=== PATIENT | male | born 1950 | race Caucasian/White ===

== ENCOUNTER 2022-05-28 11:00 | Outpatient (RCR) | payer MEDICARE, BC, SELFPAY ==
--- NOTE | 2022-05-02 16:23 | OT.OPOE ---
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 Pt states his index and middle fingers were completely numb and his ring finger was slightly numb. Pt believes it occurred secondary to carrying a heavy bag with his 2 fingers while his arms were also loaded up with a lot of things while they were moving things out of his 's hospital room. Pt states he has had mild CTS in the past, but never this bad. Pt state he later had a cortisone shot which has really helped, his hand is no longer swollen but his fingers are. Pt states he still can't make a fist but the pain is getting better. Fingers (2nd and 3rd digits) are not quite as numb, in fact , the ring finger numbness has completely resolved. Pt has been using a compression glove and a splint at night and occasionally during the day. Pt states he has tried ice but this made it hurt more. Pt still has occasional difficulty with sleeping, he has a hard time buttoning shirts and zipping zippers, cooking is hard, difficult to lift and carry anything heavy, unable to grasp with the LUE. Pain Assessment Pain Present Pain Present Pain Reported Location Left Hand Description Burning,Tightness,Radiating, Sharp,Stabbing,Shooting Intensity 5 Wrist Goniometric Wrist Left Active Flexion (70-90 degrees) 50 L Active Extension (60-70 degrees) 35 L Active Ulnar Deviation (20-30 degrees) 15 L Active Radial Deviation (15-20 degrees) 20 ROM Limitations Soft Tissue Tightness,Pain Hand Pinch/Technical Manager [employer] Plant Strength Hand Right Technical Manager [employer] Strength Position 1 (lbs) 56 Lateral Pinch Strength (lbs) 12 Three Point Pinch (lbs) 10 Left Technical Manager [employer] Strength Position 1 (lbs) 8 Lateral Pinch Strength (lbs) 13 Three Point Pinch (lbs) 6 OT Objective Data Hand Hand Dominance Right Additional Information Objective Additional Information 05/02/22 Pt demonstrates atrophy in the first webs pace on his RUE, seems to be related to UN? Also demonstrates a TF in the RUE 3rd digit, states it does not hurt and he has had it for a long time. Palpable cord in the LUE palm, seems to be stemming from 5th digit, Dupytren's? Upper Extremity Special Tests Wrist Durkan's Test Positive Left Median Nerve-Carpal Tunnel Wrist Phalen Test Positive Left Wrist Tinel Test left Upper Extremity Special Tests Comments Comments 05/02/22 (+) Tinnels at the median nn, (+) Durkan's in 10 seconds. OT Problems Problems Problems Decreased Strength,Decreased Range of Motion,Decreased Dexterity,Decreased Fine Motor ,Sensory Sensitivity,Lifting, Gripping,Pinching Problems Comments Difficulty with sleep Other Problems Opening Containers,Dressing, Fasteners Patient Potential Good Assessment Assessment Assessment Pt presents to OT with paresthesia, weakness, pain, and limited AROM of the LUE hand / wrist. Pt has (+) s/s of CTS in the LUE. Pt has difficulty with grasping, lifting, carrying, and any activity that requires use of his LUE. Pt also complains of sleep disturbance and holding hand on the steering wheel for longer drives. Pt will benefit from skilled OT intervention to address LUE deficits / paresthesia / pain in order to restore full, pain -free use of his LUE as well as to improve his quality of sleep. Occupational Therapy Treatment Plan - OP Potential Rehabilitation Potential Good Set Goals Goals Set with Patient Yes Goals Goals 1. Pt will be independent and compliant with HEP in order to resume full, pain-free use of the involved UE. 3 weeks 2. Pt will demonstrate full, pain-free AROM of the involved UE in order to improve ability to grasp and hold. 6 weeks 3. Pt will report the ability to sleep through the night for 5 consecutive days in order to improve sleep hygiene needed for daily life. 7 weeks . 4. Pt will demonstrate pain- free fern picker and pinch strength comparable to the uninvolved side in order to improve functional grasp, hold, reach, and lifting ability needed to complete self-care, leisure tasks, and work activities. 8 weeks. Target Date 07/02/22 Progress set Treatment Plan Treatment Plan Evaluation,Iontophoresis, Manual Therapy,Splinting, Ultrasound,Therapeutic Exercise,Therapeutic Activities,Self-Care/Home Management,Education Expected Frequency 1-2x Week Expected Duration 6-8 Weeks Certification Certification I Certify That: Therapy Services Provided, Therapy Plan Established, Therapy Plan Reviewed Recertification Information Recertification Information Initial Certification Date 05/02/22 Recertification Due Date 07/31/22 Reasons to Continue Skilled Therapy Initiating OT to address pain, weakness, limited AROM, and paresthesia in LUE secondary to CTS. Rehabilitation Potential Good Continued Plan of Care and Interventions Please see above. Provider Signature Shows Agreement With POC & Medical Necessity Physician Comment/Change Comment or Changes Physician NPI Number #
== END 2022-09-11 23:59 | disposition home or self-care (01) ==
PROVIDERS: PCP Family Medicine; Visit Provider Physician Assistant
DX: G56.02 Carpal tunnel syndrome, left upper limb (principal); Z51.89 Encounter for other specified aftercare
CPT/HCPCS: 97035; 97140; 97165

== ENCOUNTER 2022-06-26 06:41 | Day surgery (SDC) | payer MEDICARE, BC, SELFPAY ==
[2022-06-26] VITALS (8 sets, daily range): BP systolic 128–157; BP diastolic 74–95; PULSE 51–69; RESP 16; TEMP 36.4; O2SAT 94–99; BMI 39.4
[2022-06-26] MEDS: SODIUM CHLORIDE 0.9 % (FLUSH) 10 ML SYRINGE IVF (07:11)
[2022-06-26] MEDS: LACTATED RINGERS 1000 ML 1,000 ML 100 ML IV ×2 (07:11→08:30)
--- NOTE | 2022-06-26 07:27 | SUR.PREOP ---
TIME?OUT:?7:30 PT/RN/MDA?VERIFICATION?OF?SURGICAL?SITE Left Arm,?PROCEDURE Nerve Block ,?AND?CONSENT OBTAINED?PRIOR?TO?INVASIVE?PROCEDURE Y.
[2022-06-26] MEDS: fentaNYL 100 MCG/2 ML inj IVP (07:30)
[2022-06-26] MEDS: MIDAZOLAM HCL 1 MG/ML inj IVP (07:30)
--- NOTE | 2022-06-26 07:44 | SUR.PREOP ---
I have reviewed and concur with all assessments, medication administration, and documentation completed by Liza Yates, student nurse.?
[2022-06-26] MEDS: CEFAZOLIN 2 GM INJ IVP (07:50)
--- NOTE | 2022-06-26 08:18 | W.ANESCHARGE ---
Anesthesia Charges Start Date/Time Anesthesia Start Date: 06/26/22 Anesthesia Start Time: 07:42 Stop Date/Time Anesthesia Stop Date: 06/26/22 Anesthesia Stop Time: 08:59 Summary Extremes of Age - Over 70 or under 1: MDA
--- NOTE | 2022-06-26 08:19 | W.PM.NB ---
Nerve Block Nerve Block Time Seen by Provider: 07:35 Date Seen: 06/26/22 Type of block requested by surgeon for post-operative analgesia: axillary Side: left Time out performed: Yes Verification of patient name: Yes Verification of date of : Yes Site marking: site marked Name of person performing procedure: Art Continuous monitoring Was continuous monitoring of O2 sat, B/P, telemetry monitor, recorded every 15 minutes?: Yes Procedure Checklist: sterile prep, needles and gloves Ultrasound guided. Images saved: Yes Medications given in 5ml increments after negative aspiration: Ropivicaine %: 0.5 mL: 15 Needle gauge: 22 and Lidocaine %: 2 mL: 15 Needle gauge: 22 Patient tolerated procedure well: Yes Additional comments: Needle noted adjacent to nerve Block Charges Block Charge (with Pro Fee): Brachial Plexus Use of Ultrasound Machine for Block: Yes- US Guidance/pain block
--- NOTE | 2022-06-26 08:38 | PM.ORPRC ---
Procedure Note Date of procedure: 06/26/22 Procedure: Preop diagnosis: Left upper extremity cubital tunnel syndrome, carpal tunnel syndrome Postop diagnosis: Left upper extremity cubital tunnel syndrome, carpal tunnel syndrome Procedure: Left upper extremity cubital tunnel release, carpal tunnel release Anesthesia: Supraclavicular block plus monitored anesthesia care Surgeon: Anam Chaney MD malt specifications control assistant: FRED Douglas EBL: 0 mL Complications: None Specimens: None Drains: None Preoperative antibiotics: Ancef 3 g Indications: The patient has a history of left upper extremity cubital tunnel and carpal tunnel syndrome symptoms. EMG/nerve conduction study confirms the diagnosis. Despite appropriate nonoperative management they continue to have symptoms. Operative intervention was recommended. The risks, benefits alternatives and expected outcomes were discussed in detail. These included but were not limited to: Infection, bleeding, injury to blood vessel or nerve, venous thromboembolism. All questions were answered to their satisfaction. A supraclavicular block was placed. The patient was placed supine on the operating room table. IV sedation was administered. The upper extremity was prepped and draped in usual sterile fashion. The limb was exsanguinated with the Real bandage, the pneumatic tourniquet was inflated to 250 mm of mercury. A longitudinal incision was made centered over the ulnar nerve at the cubital tunnel. Subcutaneous dissection was taken with the scalpel and Metzenbaum and tenotomy scissors to the ulnar nerve. Dissection was carried distally to the fascia over the flexor carpi ulnaris which was divided longitudinally. We visualized the motor branch to the FCU. Dissection was carried proximally into the triceps muscle belly. This results in a wide decompression of the ulnar nerve. Flexion and extension of the elbow shows the nerve is stable. Attention was then turned to the hand. A longitudinal incision was made centered over the radial border of the ring finger at the base of the palm. Subcutaneous dissection was sharply taken through the palmar fascia and the palmaris brevis to the transverse carpal ligament. The ligament was divided in line with the incision. Proximal and distal dissection was carried with tenotomy and Metzenbaum scissors for a wide decompression of the carpal tunnel. The wounds were irrigated with normal saline and the hand was closed with a 3-0 nylon in a simple interrupted fashion. The elbow wound was irrigated with normal saline. It was closed with a 2-0 Vicryl and a 3-0 Monocryl in a subcuticular fashion. Glue was used to seal the skin. A soft dressing was applied. A dry dressing was applied, sponge and needle counts were correct x 2. The tourniquet was released. The patient tolerated the procedure well, there were no apparent complications. They were sent to same day surgery in satisfactory condition. Plan: Use of the upper extremity as tolerates. Discontinue the intraoperative dressing on postoperative day 3 and may get the wound wet as tolerates. Follow up in the office in 2 weeks for a wound check.
--- NOTE | 2022-06-26 15:13 | W.ANESCHARGE ---
Anesthesia Charges Start Date/Time Anesthesia Start Date: 06/26/22 Anesthesia Start Time: 07:42 Stop Date/Time Anesthesia Stop Date: 06/26/22 Anesthesia Stop Time: 08:59 Summary Extremes of Age - Over 70 or under 1: RESIDENTIAL PROGRAM COORDINATOR
== END 2022-06-26 10:02 | disposition home or self-care (01) ==
PROVIDERS: PCP Family Medicine; Visit Provider Orthopaedic Surgery
PROC: (CPT 64721; principal; 2022-06-26 08:00)
PROC: (CPT 64718; 2022-06-26 08:00)
DX: G56.22 Lesion of ulnar nerve, left upper limb (principal); G56.02 Carpal tunnel syndrome, left upper limb; G89.18 Other acute postprocedural pain
CPT/HCPCS: 64718; 64721; 01710; 01810; 64415; 76942; 82962; 99100; J0690; J2250; J2704; J2795; J3010; J3490; J7120

== ENCOUNTER 2022-09-11 15:00 | Outpatient (RCR) | payer MEDICARE, BC, SELFPAY ==
--- NOTE | 2022-07-15 17:51 | OT.OPOE ---
OT Outpatient Ortho Eval OT Outpatient Ortho Eval* Start: 07/15/22 13:40 Freq: Status: Active Protocol: Document 07/15/22 13:42 AMB (Rec: 07/15/22 13:58 AMB [id number]) E-signed By Angelika Emmanuel, OTR/L, CLT, MICROBIOLOGY DIRECTOR OT OP Ortho Eval Details Complexity Complexity Low Insurance Information Insurance Information Medicare B Outpatient History/Precautions Current Condition/Medical Diagnosis Referring Provider Dr Chaney Treatment Diagnosis LUE CTR and Cubital Tunnel Release Date of Onset 06/26/22 Medical Conditions DM,Heart Condition,HTN, Pacemaker,Arthritis Other Conditions PSH:H/O heart artery stent, History of ankle surgery Pt also has gout in his LUE thumb MP and big toe Social History Employment Status Retired 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 Pt states his index and middle fingers were completely numb and his ring finger was slightly numb. Pt believes it occurred secondary to carrying a heavy bag with his 2 fingers while his arms were also loaded up with a lot of things while they were moving things out of his 's hospital room. Pt states he has had mild CTS in the past, but never this bad. Pt state he later had a cortisone shot which has really helped. Pt also underwent OT from 05/01/22 - 05/28/22 which helped a lot with ROM and swelling but he still could not sleep and had difficulty with doing most activities that required use of BUE. Pt states he underwent CTR and cubital tunnel release on 06/26/22 and has had a great deal of night time pain relief which has allowed for sleep, still has numbness in the tip and middle phalange of the 3rd digit and tingling int he tips of the 2nd and 4th digits. Pt states his hand is still quite weak as well. Pt states he has discomfort and tingling in his hand, very mild pain ~ 1/10. Pain Assessment Pain Present Pain Present Pain Reported Range of Motion and Strength Elbow/Forearm Range of Motion and Strength Elbow/Forearm Range of Motion and 07/15/22 AROM of the LUE elbow Strength is WNL throughout, wrist flexion is 50, ext is 45, UD is 30, RD is 20. Pt is able to complete a full fist to palm but not quite composite. Hand Pinch/Crankshaft Balancer Strength Hand Right Crankshaft Balancer Strength Position 1 (lbs) 56 Lateral Pinch Strength (lbs) 15 Left Crankshaft Balancer Strength Position 1 (lbs) 27 Lateral Pinch Strength (lbs) 15 OT Problems Problems Problems Decreased Strength,Decreased Range of Motion,Pain,Sensory Sensitivity,Gripping,Pinching Other Problems Opening Containers,Fasteners Patient Potential Good Assessment Assessment Assessment Pt presents to OT with paresthesia / mild discomfort, limited AROM and weakness in the LUE following CTR and cubital tunnel release. 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 Pt will benefit from skilled OT intervention to address impairments and restore full, pain-free use of the LUE. Occupational Therapy Treatment Plan - OP Potential Rehabilitation Potential Good Set Goals Goals Set with Patient Yes Goals Goals 1. Pt will be independent and compliant with HEP in order to resume full, pain-free use of the involved UE. 3 weeks 2. Pt will demonstrate full, pain-free AROM of the involved UE in order to improve ability to grasp and hold. 6 weeks 3. Pt will demonstrate pain- free electric motor winder and pinch strength comparable to the uninvolved side in order to improve functional grasp, hold, reach, and lifting ability needed to complete self-care, leisure tasks, and work activities. 8 weeks. Treatment Plan Treatment Plan Evaluation,Edema Control, Manual Therapy,Splinting, Ultrasound,Therapeutic Exercise,Therapeutic Activities,Self Care/Home Management,Education Expected Frequency 1-2x Week Expected Duration 6-8 Weeks Home Program Home Program Home Program Initiated Home Program Specifics Light gripping with pink putty , wrist flex/ext stretch. Certification Certification I Certify That: Therapy Services Provided, Therapy Plan Established, Therapy Plan Reviewed Recertification Information Recertification Information Initial Certification Date 07/15/22 Recertification Due Date 10/13/22 Reasons to Continue Skilled Therapy Initiating OT today to address LUE decreased ROM and weakness following CTR and cubital tunnel release. Rehabilitation Potential Good Continued Plan of Care and Interventions Please see above. Provider Signature Shows Agreement With POC & Medical Necessity Physician Comment/Change Comment or Changes Physician NPI Number #
== END 2023-01-07 16:01 | disposition home or self-care (01) ==
PROVIDERS: PCP Family Medicine; Visit Provider Orthopaedic Surgery
DX: Z98.890 Other specified postprocedural states (principal); Z51.89 Encounter for other specified aftercare
CPT/HCPCS: 97035; 97140; 97165

== ENCOUNTER 2024-09-23 13:46 | Outpatient (RCR) | payer MEDICARE, BC, SELFPAY ==
--- NOTE | 2024-09-23 15:06 | PT.OPE ---
PT [place] Outpatient Eval PT [facility] Outpatient Eval Start: 09/23/24 12:51 Freq: Status: Active Protocol: Document 09/23/24 15:04 CJT (Rec: 09/23/24 15:06 NIMAT [id number]) E-signed By Dylon Srivastava PT Physical Therapy Outpatient Evaluation Insurance Information Recert Due Date 12/22/24 Insurance Name Medicare B Medical Diagnosis M54.16 - radiculopathy, lumbar region M54.5 - low back pain G89.29 - other chronic pain Treating Diagnosis M54.16 - radiculopathy, lumbar region M54.5 - low back pain Imaging Report X-Ray - Lumbar Spine - 09/22/24 Information 1. Moderate multilevel degenerative changes with 6 millimeter of retrolisthesis of L2 on L3. 2. Mild chronic appearing wedging of the L2 and L3 vertebral bodies. 3. No acute displaced fracture or malalignment is seen. Referring MD Lopez, Luiz LIMON Subjective Preferred Name [place] Subjective Pt as in the process of losing weight to have a hip replacement. When he met his ideal weight for surgery he started having pain in B hips (gluteal region). Pt has been walking with a 4WW most of the time. Over time his pain has become more and more sharp. If he's at the grocery store he is having a difficult time making his way through the entire store while shopping. From his knee down on L he has been experiencing numbness that progressively worsens while he is in standing. Pt notes he experiences stabbing pain in his back when he stands up straight. Starts out sleeping on his L side and eventually moves to R and eventually his pain comes on. Pain Comments -10/02 Current Work Status Retired Precautions Therapy Limitations/ Not Limited Systems Review Objective Other/Pertinent Lumbar ROM Objective Extension - pt stands with approx 10 degrees trunk flexion, notes increased tingling in L LE with this position, made worse with any extension Flexion - minimal limitations, no pain R/L Side Bend - increased pain with L side bend R/L Rotation - increased pain in L glute with L rotation R Hip ROM Flexion - IR/ER - 22/30 Extension - L Hip ROM Flexion - IR/ER - 20/20 Extension - R knee ROM - L knee ROM - R ankle PF/DF(kf)/DF(ke) - L ankle PF/DF(kf)/DF(ke) - R Hip Strength Flexion - /5 MMT Abduction - /5 MMT Adduction - 5/5 MMT IR - 5/5 MMT ER - 5/5 MMT Extension - /5 MMT L Hip Strength Flexion - /5 MMT Abduction - /5 MMT Adduction - 5/5 MMT IR - 5/5 MMT ER - 5/5 MMT Extension - /5 MMT R knee Extension - 5/5 MMT R Knee Flexion - 5/5 MMT L knee Extension - 5/5 MMT L knee Flexion - 5/5 MMT R ankle DF - 4/5 MMT L ankle DF - 3/5 MMT Palpation: pt reports pain/tenderness with palpation to Gait: pt ambulates with 4WW with lean to R, short stride length B DTRs: 2+ bilateral patella, 2+ R achilles, unable to elicit response in L Achilles Special Testing Slump: SLR: FADIR: SONIA: Christy's: Piriformis: Hamstring: Pelvis: Leg Length (R/L): Functional Test Oswestry: 52% disability Performed & Score Assessment Assessment/ Tex is a very pleasant year old male who presents to [facility] for evaluation and treatment of low back pain with lumbar radiculopathy. Pts symptoms are consistent with lumbar foraminal stenosis with increased pain and discomfort with lumbar extension and relief of symptoms with lumbar flexion. I explained to him that exercises reviewed with him today and designed to relieve pressure on any impinged nerve roots and he should perform when he is having pain. The nature of the pts condition was explained and all questions were answered to the pts satisfaction. Skilled PT services are medically necessary to address deficits and return patient to highest level of function. Recommend physical therapy sessions 2/week for 6-8 weeks. Pt agrees with this plan. Printout of HEP was given for I completion and pt gives verbal understanding of each exercise. Primary Functional Walking, transfers Limitations Plan of Care Rehabilitation Fair Potential Physical Therapy STG - To be completed in 2-3 weeks: Goals 1. Pt will report reduction in pain by factor of 2 so that they may perform all ADLs with tolerable level of pain. 2. Pt will demonstrate ability to perform pelvic tilt with good coordination as indication of appropriate firing of pelvic and lumbar stabilizing muscles to provide greater support for pelvis and lumbar spine. LTG - To be completed in 6-8 weeks: 1. Pt to be I with HEP so that they may I manage progression of symptoms. 2. Pt will report ability to sleep through the night without waking due to pain so that they may wake well rested with reduced mental fatigue during working hours . 3. Pt will report ability to stand for at least 10 minutes without radicular symptoms so that he may go for short grocery store trips without fear of falling due to numbness/weakness. Treatment Plan/ Dry Needling,Electrical Stimulation,Gait Training,Heat, Direct Interventions Ice/Cold/Vasopneumatic,Joint Mobilization,Manual Therapy,Neuromuscular Re-ed,Self-Care/Home Management, Therapeutic Activities,Therapeutic Exercises Frequency/Duration 2/week for 6-8 weeks Patient Will Be Completion of LTG(s),Skills Plateau,Independent w/HEP, Discharged From Independently Progressing Therapy Evaluation Billing Untimed Code 44 Treatment Minutes PT Eval No Charge No Complexity Low Certification Information Initial 09/23/24 Certification Date Ending Certification 12/22/24 Date Provider Signature Yes Required Provider Signature POC & Medical Necessity Shows Agreement With Physician NPI Number Write NPI# Here Physician Comment/ : Change Physician Signature Please Sign/Date Here & Date Requested
== END 2024-11-29 14:24 | disposition home or self-care (01) ==
PROVIDERS: PCP Family Medicine; Visit Provider Family Medicine
DX: M54.16 Radiculopathy, lumbar region (principal); M54.50 Low back pain, unspecified; G89.29 Other chronic pain; Z51.89 Encounter for other specified aftercare
CPT/HCPCS: 97110; 97161

== ENCOUNTER 2024-10-20 08:38 | Outpatient (CLI) | payer MEDICARE, BC, SELFPAY ==
--- NOTE | 2024-10-20 09:00 | CRLHL7_ITS ---
For Patients: As a result of the Century Cures Act, medical imaging exams and procedure reports are released immediately into your electronic medical record. You may view this report before your referring provider. If you have questions, please contact your health care provider. Indication: ABNORMALITY SEEN BY ADRENAL GLAND ON L SPINE MRI Technique: Noncontrast CT abdomen and pelvis performed. IV contrast not administered due to renal insufficiency. Please note that all CT scans at this facility use dose modulation, iterative reconstruction, and/or weight-based dosing when appropriate to reduce radiation dose to as low as reasonably achievable. Comparison: MRI 09/27/2024 Findings: Calcified nodular density within the right lower lobe is present measuring 1.1 cm representing calcified granuloma. Calcified right infrahilar lymph node also noted along with calcified splenic granulomas. Small right pleural effusion. Scarring at the left lung base. Noncontrast enhanced liver appears normal. There is a fat density mass arising from the posterior left adrenal gland measuring 4.6 cm. An adjacent circumscribed structure is present within the left suprarenal retroperitoneum measuring 4.5 cm containing dependent density. A large lobulated mass is located within the right upper retroperitoneum between the inferior vena cava and portal vein measures 6.6 cm. Adjacent stranding in the retroperitoneal fat noted along with numerous sub cm lymph nodes. Right adrenal gland appears normal. Numerous mildly prominent lymph nodes extend more inferiorly within the retroperitoneum and within the pelvis bilaterally along with ill-defined strandy densities. Mildly prominent inguinal lymph nodes also present. Bladder partially distended with possible wall thickening. Prostate is somewhat prominent. No mechanical bowel obstruction. Cardiomegaly. No free air. Extensive vascular calcifications. No aneurysm. Pancreas is normal. Calcified stones in the gallbladder. There is an exophytic structure arising from the left kidney laterally measuring 2.2 cm. Water attenuation cyst within the right kidney measures 1.4 cm. Extensive degenerative disc disease noted throughout the lumbar spine. Incidental hemangiomas are present within L4 and L5. Severe multilevel degenerative facet arthropathy. 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 Exophytic structure arises from the posterior left kidney which measures 1.5 cm, possibly cystic. Impression: Indeterminate right upper retroperitoneal mass in the portacaval space measures 6.6 cm. Indeterminate low-density mass with peripheral high attenuation in the left upper retroperitoneum measures 4.5 cm. Indeterminate solid-appearing mass arising from the lateral aspect of the left kidney which measures 2.2 cm. Retroperitoneal adenopathy along with adenopathy in the pelvic sidewalls and inguinal regions bilaterally. Small right pleural effusion. Cholelithiasis. Incidental left adrenal myelolipoma. Recommendation: Because of renal insufficiency, would recommend CT-guided percutaneous biopsy of the right upper retroperitoneal mass for diagnosis. Please note that all CT scans at this facility use dose modulation, iterative reconstruction, and/or weight-based dosing when appropriate to reduce radiation dose to as low as reasonably achievable. Dictated by Isaías Wen MD @ 10/20/2024 12:12:54 PM (Electronically Signed)
[2024-10-20 09:23] LABS: Creatinine* 2.5 mg/dL (0.5-1.5); Estimated Glomerular Filt Rate 26 ml/min
== END 2024-10-20 08:39 | disposition home or self-care (01) ==
LOC: CT 08:40
PROVIDERS: PCP Family Medicine; Visit Provider Family Medicine
DX: E27.9 Disorder of adrenal gland, unspecified (principal); R19.09 Other intra-abdominal and pelvic swelling, mass and lump; J90 Pleural effusion, not elsewhere classified; N28.89 Other specified disorders of kidney and ureter; K80.20 Calculus of gallbladder without cholecystitis without obstruction
CPT/HCPCS: 36415; 74176; 82565

== ENCOUNTER 2024-11-01 09:54 | Outpatient (CLI) | payer MEDICARE, BC, SELFPAY | END 2024-11-01 09:55 | disposition home or self-care (01) | LOC: INJ CL 09:55 | PROVIDERS: PCP Family Medicine; Visit Provider Family Medicine | DX: M54.16 Radiculopathy, lumbar region (principal); M51.369 Other intervertebral disc degeneration, lumbar region without mention of lumbar back pain or lower extremity pain | CPT/HCPCS: 64483; 64484; J1100; Q9966 ==